=== PATIENT | male | born 1995 | race Caucasian/White ===

== ENCOUNTER 2021-01-08 10:32 | Emergency (ER) | payer OTHER ==
[~2021-01-08] VITALS: Ht 175.3 cm; Wt 85.5 kg
[2021-01-08 10:32] VITALS: BP 130/72
[2021-01-08] MEDS ORDERED: DOXY100C37 PO (11:26)
== END 2021-01-08 11:45 | disposition home or self-care (01) ==
LOC: M ED 10:32
DX: L03.113 Cellulitis of right upper limb (principal)